=== PATIENT | male | born 1985 | race Two or more races ===

== ENCOUNTER 2016-10-04 19:23 | Emergency (ER) | payer BC ==
[~2016-10-04] VITALS: Ht 177.8 cm; Wt 120.2 kg
[2016-10-04 19:46] VITALS: BP 134/89
[2016-10-04 20:36] LABS: Basophils # (auto) 0 uL; Basophils % (auto) 0.9 % (0.0-2.0); Eosinophils # (auto) 0.2 uL; Eosinophils % (auto) 3.6 % (0.0-7.0); Hematocrit 47.7 % (41.0-53.0); Hemoglobin 16.2 g/dL (13.5-17.5); Lymphocytes % (auto) 21.7 % (10.0-50.0); Mean Corpuscular Hemoglobin 28.5 pg (28.0-32.0); Mean Corpuscular Volume 83.9 fL (80.0-100.0); Mean Platelet Volume 8.2 fL (7.4-10.4); Monocytes # (auto) 0.6 uL; Monocytes % (auto) 12.2 % (0.0-12.0); Neutrophils # (auto) 2.9 uL; Neutrophils % (auto) 61.6 % (37.0-80.0); Platelet Count (auto) 219 10^3/uL (140-450); Red Cell Distribution Width 14.2 % (11.6-16.0); White Blood Cell 4.7 10^3/uL (4.4-10.8)
[2016-10-04 21:03] LABS: Potassium 3.9 mmol/L (3.5-5.1)
[2016-10-04 21:04] LABS: Albumin 3.5 g/dL (3.4-5.0); Calcium 8.4 mg/dL (8.5-10.1)
[2016-10-04 21:07] LABS: Bilirubin, Total 0.7 mg/dL (0.2-1.0); Total Protein 7.5 g/dL (6.4-8.2)
== END 2016-10-04 22:59 | disposition home or self-care (01) ==
LOC: ER 20:05
DX: J09.X2 Influenza due to identified novel influenza A virus with other respiratory manifestations (principal); M10.9 Gout, unspecified
CPT/HCPCS: 36415; 71020; 80053; 84484; 85025; 85049; 87400

== ENCOUNTER 2016-11-02 11:33 | Inpatient (IN) | payer BC ==
[~2016-11-02] VITALS: Ht 180.3 cm; Wt 132.3 kg
[2016-11-02 13:11] LABS: INR 1.04 (0.9-1.15); Partial Thromboplastin Time 26.5 sec (22.64-33.71); Prothrombin Time 10.7 sec (9.37-12.3)
[2016-11-02 13:24] LABS: Albumin 4.1 g/dL (3.4-5.0); BUN/Creatinine Ratio 13.4; Bilirubin, Total 1.1 mg/dL (0.2-1.0); Calcium 9.2 mg/dL (8.5-10.1); Potassium 4.1 mmol/L (3.5-5.1); Total Protein 8.3 g/dL (6.4-8.2)
[2016-11-02 13:53] LABS: DEFINITIVE VIEW TRANSMISSION; Hematocrit 51.3 % (41.0-53.0); Hemoglobin 16.9 g/dL (13.5-17.5); Mean Corpuscular Hemoglobin 27.6 pg (28.0-32.0); Mean Corpuscular Hgb Conc. 32.9 g/dL (32.0-36.0); Mean Corpuscular Volume 84.1 fL (80.0-100.0); Mean Platelet Volume 9.3 fL (7.4-10.4); Platelet Count (auto) 247 10^3/uL (140-450); Red Cell Distribution Width 14.7 % (11.6-16.0); SUSPECT VIEW TRANSMISSION; White Blood Cell 22.8 10^3/uL (4.4-10.8)
[2016-11-02 14:06] LABS: Metamyelocytes % 0; Myelocytes % 0; Promyelocytes % 0; Reactive Lymphocytes 0
[2016-11-02] MEDS ORDERED: IOHEXOL 350 MG/ML 100ML IJ ONE (15:36)
[2016-11-02] MEDS: cefTRIAXone 1GM/50ML D5W 50 ML IV SCH (17:00)
[2016-11-02] MEDS ORDERED: LACTULOSE 20Gm/30ML SOLN PO PRN ×2 (17:15)
[2016-11-02] MEDS ORDERED: MORPHINE SULF INJ 2 MG/ML SYRINGE 1ML IV PRN ×2 (17:15)
[2016-11-02] MEDS ORDERED: OSELTAMIVIR 75 MG CAP PO ONE (17:15)
[2016-11-02] MEDS ORDERED: TEMAZEPAM 15 MG CAP PO PRN (17:15)
[2016-11-02] MEDS ORDERED: NITROGLYCERIN 0.4 MG SL TAB SL PRN (17:15)
[2016-11-02] MEDS ORDERED: ACETAMINOPHEN 500 MG TAB PO PRN (17:15)
[2016-11-02] MEDS ORDERED: PROMETHAZINE HCL 25 MG/ML 1ML IV PRN (17:15)
[2016-11-02] MEDS ORDERED: LORazepam 0.5 MG TAB PO PRN (17:15)
[2016-11-02] MEDS ORDERED: ALBUTEROL SULF 2.5 MG/0.5ML(0.5%) NEB SOLN NEB PRN (17:15)
[2016-11-02] MEDS ORDERED: ENOXAPARIN SOD 40 MG/0.4 ML SYRINGE SC ONE (17:19)
[2016-11-02] MEDS ORDERED: ASPirin 81 mg TAB PO ONE (17:30)
[2016-11-02] MEDS: SODIUM CHLORIDE 0.9% 1,000 ML IV SCH (17:30)
[2016-11-02 17:59] LABS: Platelet Estimate Adequate; RBC Morphology Normal
[2016-11-02] MEDS: AZITHROMYCIN 500MG/D5W 250ML 250 ML IV SCH (18:03)
[2016-11-02 18:30] VITALS: BP 135/71
[2016-11-02] MEDS: HYDROcodone-ACET 5/325MG TAB PO PRN (18:55)
[2016-11-02 19:45] LABS: INR 1.08 (0.9-1.15); Prothrombin Time 11.1 sec (9.37-12.3)
[2016-11-02 20:00] VITALS: BP 129/61
[2016-11-02] MEDS: ALBUTEROL SULF 2.5 MG/0.5ML(0.5%) NEB SOLN NEB SCH (21:32)
[2016-11-02 21:39] VITALS: BP 129/61
[2016-11-02] MEDS: METOPROLOL TARTRATE 25 MG TAB PO SCH (22:00)
[2016-11-03] VITALS (7 sets, daily range): BP systolic 109–142; BP diastolic 54–67
[2016-11-03] MEDS: ALBUTEROL SULF 2.5 MG/0.5ML(0.5%) NEB SOLN NEB SCH ×3 (00:51→12:00)
[2016-11-03 01:37] LABS: Albumin 3.1 g/dL (3.4-5.0); Anion Gap 8 (5-15); Aspartate Aminotransferase 21 U/L (15-37); BUN/Creatinine Ratio 13.6; Blood Urea Nitrogen 14 mg/dL (7-18); Calcium 8.4 mg/dL (8.5-10.1); Carbon Dioxide 26 mmol/L (21-32); Chloride 107 mmol/L (98-107); GFR African American 108 mL/min; GFR Non-African American 90 mL/min; Glucose 91 mg/dL (74-106); Potassium 3.8 mmol/L (3.5-5.1); Sodium 141 mmol/L (136-145)
[2016-11-03 01:42] LABS: Alkaline Phosphatase 88 U/L (45-117); Bilirubin, Total 0.5 mg/dL (0.2-1.0)
[2016-11-03] MEDS: SODIUM CHLORIDE 0.9% 1,000 ML IV SCH ×2 (03:07→11:54)
[2016-11-03 05:14] LABS: Basophils # (auto) 0 uL; Basophils % (auto) 0.2 % (0.0-2.0); Eosinophils # (auto) 0.4 uL; Eosinophils % (auto) 2.9 % (0.0-7.0); Hematocrit 46.8 % (41.0-53.0); Hemoglobin 15.3 g/dL (13.5-17.5); Lymphocytes % (auto) 15.4 % (10.0-50.0); Mean Corpuscular Hemoglobin 27.7 pg (28.0-32.0); Mean Corpuscular Hgb Conc. 32.7 g/dL (32.0-36.0); Mean Corpuscular Volume 84.7 fL (80.0-100.0); Mean Platelet Volume 8.8 fL (7.4-10.4); Monocytes # (auto) 0.5 uL; Monocytes % (auto) 3.9 % (0.0-12.0); Neutrophils # (auto) 10.1 uL; Neutrophils % (auto) 77.6 % (37.0-80.0); Platelet Count (auto) 222 10^3/uL (140-450); Red Cell Distribution Width 14.7 % (11.6-16.0)
[2016-11-03 05:46] LABS: LDL Cholesterol 95 mg/dL (<100); Triglycerides 167 mg/dL (<150)
[2016-11-03 06:03] LABS: Cholesterol 140 mg/dL (<200); HDL Cholesterol 42 mg/dL (40-59)
[2016-11-03] MEDS: HYDROcodone-ACET 5/325MG TAB PO PRN (07:45)
[2016-11-03] MEDS: cefTRIAXone 1GM/50ML D5W 50 ML IV SCH (09:28)
[2016-11-03] MEDS: METOPROLOL TARTRATE 25 MG TAB PO SCH (09:29)
[2016-11-03] MEDS ORDERED: ASPirin 81 mg TAB PO SCH (10:00)
[2016-11-03] MEDS ORDERED: NITROGLYCERIN 0.2MG/HR TOPICAL PATCH TD SCH (10:00)
[2016-11-03] MEDS ORDERED: ENOXAPARIN SOD 40 MG/0.4 ML SYRINGE SC SCH (10:00)
[2016-11-03] MEDS ORDERED: OSELTAMIVIR 75 MG CAP PO SCH (10:00)
[2016-11-03] MEDS: AZITHROMYCIN 500MG/D5W 250ML 250 ML IV SCH (10:17)
[2016-11-03] MEDS ORDERED: AZIT500T PO (13:25)
[2016-11-03] MEDS ORDERED: ALBUAER3 IN (13:28)
== END 2016-11-03 14:40 | disposition home or self-care (01) | DRG 313 ==
LOC: ER 11:33 → TELE 11:34 → TELE-CENTR 18:26
PROVIDERS: ADMIT Internal Medicine; ATTEND Internal Medicine
DX: R07.89 Other chest pain (principal); Z68.41 Body mass index [BMI] 40.0-44.9, adult; K76.0 Fatty (change of) liver, not elsewhere classified; J11.1 Influenza due to unidentified influenza virus with other respiratory manifestations; D72.829 Elevated white blood cell count, unspecified; E66.01 Morbid (severe) obesity due to excess calories; D72.828 Other elevated white blood cell count; R00.0 Tachycardia, unspecified; Z82.49 Family history of ischemic heart disease and other diseases of the circulatory system; Z83.3 Family history of diabetes mellitus; Z80.3 Family history of malignant neoplasm of breast; Z80.8 Family history of malignant neoplasm of other organs or systems
CPT/HCPCS: 36415; 71020; 71275; 80053; 80061; 82550; 83605; 83735; 84443; 84484; 85007; 85025; 85027; 85379; 85610; 85652; 85730; 86141; 86658; 87040; 87400; 93005; 94640; J0696

== ENCOUNTER 2017-06-13 19:47 | Emergency (ER) | payer BC ==
[~2017-06-13] VITALS: Ht 177.8 cm; Wt 125.2 kg
[~2017-06-13 19:47] MED LIST: ALBUAER3 IN; AZIT500T PO
[2017-06-13 20:00] VITALS: BP 133/73
[2017-06-13 21:37] LABS: Basophils # (auto) 0.1 uL; Basophils % (auto) 0.9 % (0.0-2.0); Eosinophils # (auto) 0.1 uL; Eosinophils % (auto) 1.9 % (0.0-7.0); Hematocrit 46.4 % (41.0-53.0); Hemoglobin 16.2 g/dL (13.5-17.5); Lymphocytes # (auto) 1.9 uL; Lymphocytes % (auto) 27.6 % (10.0-50.0); Mean Corpuscular Hemoglobin 28.8 pg (28.0-32.0); Mean Corpuscular Volume 82.3 fL (80.0-100.0); Mean Platelet Volume 8.3 fL (6.9-10.8); Monocytes # (auto) 0.5 uL; Monocytes % (auto) 6.7 % (0.0-12.0); Neutrophils # (auto) 4.3 uL; Neutrophils % (auto) 62.9 % (37.0-80.0); Nucleated Red Blood Cells % 0.5 %; Platelet Count (auto) 231 10^3/uL (140-450); White Blood Cell 6.9 10^3/uL (4.4-10.8)
[2017-06-13 21:48] LABS: Albumin 3.8 g/dL (3.4-5.0); BUN/Creatinine Ratio 23.8; Bilirubin, Total 0.5 mg/dL (0.2-1.0); Calcium 9.1 mg/dL (8.5-10.1); Potassium 3.8 mmol/L (3.5-5.1); Total Protein 7.8 g/dL (6.4-8.2); Uric Acid 9.8 mg/dL (3.5-7.2)
[2017-06-13] MEDS ORDERED: KETOROLAC TROMETH 60MG/2ML VIAL IM ONE (22:00)
== END 2017-06-13 22:05 | disposition home or self-care (01) ==
LOC: ER 19:51
DX: M10.9 Gout, unspecified (principal); Z79.899 Other long term (current) drug therapy
CPT/HCPCS: 36415; 73620; 80053; 84550; 85025; 96372; 99285; J1885

== ENCOUNTER → 2018-10-10 | Outpatient (CLI) | payer BC ==
[2018-10-10 04:28] LABS: Basophils # (auto) 0.1 uL; Basophils % (auto) 0.7 % (0.0-2.0); Eosinophils # (auto) 0.2 uL; Eosinophils % (auto) 2.5 % (0.0-7.0); Hematocrit 48.6 % (41.0-53.0); Hemoglobin 17.1 g/dL (13.5-17.5); Lymphocytes # (auto) 2.3 uL; Lymphocytes % (auto) 27.1 % (10.0-50.0); Mean Corpuscular Hemoglobin 29.3 pg (28.0-32.0); Mean Corpuscular Hgb Conc. 35.2 g/dL (32.0-36.0); Mean Corpuscular Volume 83.2 fL (80.0-100.0); Monocytes # (auto) 0.5 uL; Monocytes % (auto) 5.6 % (0.0-12.0); Neutrophils # (auto) 5.4 uL; Neutrophils % (auto) 64.1 % (37.0-80.0); Nucleated Red Blood Cells % 0.1 %; Platelet Count (auto) 251 10^3/uL (140-450); Red Blood Cells 5.84 10^6/uL (4.5-5.90); Red Cell Distribution Width 14.4 % (11.8-14.3); White Blood Cell 8.4 10^3/uL (4.4-10.8)
[2018-10-10 04:45] LABS: Alanine Aminotransferase 66 U/L (16-61); Albumin 3.8 g/dL (3.4-5.0); Anion Gap 8 (5-15); Aspartate Aminotransferase 26 U/L (15-37); BUN/Creatinine Ratio 23.9; Blood Urea Nitrogen 22 mg/dL (7-18); Calcium 8.9 mg/dL (8.5-10.1); Carbon Dioxide 23 mmol/L (21-32); Chloride 110 mmol/L (98-107); GFR African American > 60 mL/min; GFR Non-African American > 60 mL/min; Glucose 97 mg/dL (74-106); Sodium 141 mmol/L (136-145); Uric Acid 10.1 mg/dL (3.5-7.2)
[2018-10-10 04:49] LABS: Alkaline Phosphatase 84 U/L (45-117); Bilirubin, Total 0.6 mg/dL (0.2-1.0); Cholesterol 180 mg/dL (< 200); HDL Cholesterol 41 mg/dL (40-59); LDL Cholesterol 121 mg/dL (< 100); Total Protein 7.8 g/dL (6.4-8.2); Triglycerides 200 mg/dL (< 150)
[2018-10-10 04:55] LABS: Folate (Folic Acid) 12.77 ng/mL (5.38-24)
== END | disposition home or self-care (01) ==
LOC: LAB 07:00
DX: E78.5 Hyperlipidemia, unspecified (principal); E66.9 Obesity, unspecified; M1A.00X0 Idiopathic chronic gout, unspecified site, without tophus (tophi)
CPT/HCPCS: 36415; 80053; 80061; 82306; 82607; 82746; 83036; 84550; 85025

== ENCOUNTER 2018-10-15 12:51 | Emergency (ER) | payer BC ==
[2018-10-15] MEDS ORDERED: INDOMETHACIN 25 MG CAP PO ONE (13:30)
[2018-10-15] MEDS ORDERED: LIDOCAINE 1% HCL (LOCAL ANESTH.) INJ 20ML MDV IJ ONE (13:45)
[2018-10-15] MEDS ORDERED: TRIAMCINOLONE 40MG/ML 1ML VIAL IM ONE (13:45)
[2018-10-15 14:35] LABS: Basophils # (auto) 0 uL; Basophils % (auto) 0.4 % (0.0-2.0); Eosinophils # (auto) 0.2 uL; Eosinophils % (auto) 2.1 % (0.0-7.0); Hematocrit 47.2 % (41.0-53.0); Hemoglobin 16.7 g/dL (13.5-17.5); Lymphocytes # (auto) 1.9 uL; Lymphocytes % (auto) 23.9 % (10.0-50.0); Mean Corpuscular Hemoglobin 29.3 pg (28.0-32.0); Mean Corpuscular Hgb Conc. 35.3 g/dL (32.0-36.0); Mean Corpuscular Volume 83.1 fL (80.0-100.0); Monocytes # (auto) 0.4 uL; Monocytes % (auto) 5.3 % (0.0-12.0); Neutrophils # (auto) 5.4 uL; Neutrophils % (auto) 68.3 % (37.0-80.0); Nucleated Red Blood Cells % 0.4 %; Platelet Count (auto) 262 10^3/uL (140-450); Red Blood Cells 5.68 10^6/uL (4.5-5.90); Red Cell Distribution Width 14.4 % (11.8-14.3); White Blood Cell 7.9 10^3/uL (4.4-10.8)
[2018-10-15 14:44] LABS: Albumin 3.7 g/dL (3.4-5.0); Calcium 9.3 mg/dL (8.5-10.1); Potassium 4.3 mmol/L (3.5-5.1); Uric Acid 8.1 mg/dL (3.5-7.2)
[2018-10-15 14:47] LABS: BUN/Creatinine Ratio 19.4; Bilirubin, Total 0.5 mg/dL (0.2-1.0); Total Protein 7.9 g/dL (6.4-8.2)
== END 2018-10-15 16:01 | disposition home or self-care (01) ==
LOC: ER 12:56
DX: M25.561 Pain in right knee (principal); M10.9 Gout, unspecified
CPT/HCPCS: 20610; 36415; 73562; 80053; 84550; 85025; 87205; 99284; J2001; J3301; 96372

== ENCOUNTER 2018-10-24 19:24 | Emergency (ER) | payer BC ==
[~2018-10-24] VITALS: Ht 177.8 cm; Wt 130.2 kg
[2018-10-24 21:33] LABS: Albumin 3.8 g/dL (3.4-5.0); Calcium 8.9 mg/dL (8.5-10.1)
[2018-10-24 21:36] LABS: Bilirubin, Total 0.6 mg/dL (0.2-1.0); Total Protein 7.8 g/dL (6.4-8.2)
[2018-10-24 21:44] LABS: Basophils # (auto) 0.1 uL; Basophils % (auto) 0.6 % (0.0-2.0); Eosinophils # (auto) 0.2 uL; Eosinophils % (auto) 1.7 % (0.0-7.0); Hematocrit 45.1 % (41.0-53.0); Hemoglobin 16.3 g/dL (13.5-17.5); Lymphocytes # (auto) 2.6 uL; Mean Corpuscular Hemoglobin 29.6 pg (28.0-32.0); Mean Corpuscular Volume 82.1 fL (80.0-100.0); Monocytes # (auto) 0.5 uL; Monocytes % (auto) 5.7 % (0.0-12.0); Neutrophils # (auto) 5.7 uL; Platelet Count (auto) 269 10^3/uL (140-450); Red Cell Distribution Width 14.4 % (11.8-14.3)
[2018-10-24] MEDS ORDERED: cefTRIAXone 1GM/50ML D5W 50 ML IV ONE (23:45)
[2018-10-24] MEDS ORDERED: KETOROLAC TROMETH 30 MG/ML 1ML VIAL IV ONE (23:45)
[2018-10-24] MEDS ORDERED: COLCHICINE 0.6 MG CAP PO ONE (23:45)
[2018-10-24] MEDS ORDERED: ALLOPURINOL 300 MG TAB PO ONE (23:45)
[2018-10-25 01:10] VITALS: BP 142/87
[2018-10-25] MEDS ORDERED: COLCHICINE 0.6 MG CAP PO ONE (01:15)
== END 2018-10-25 01:19 | disposition home or self-care (01) ==
LOC: ER 19:37
DX: M10.061 Idiopathic gout, right knee (principal); M76.9 Unspecified enthesopathy, lower limb, excluding foot
CPT/HCPCS: 36415; 73562; 73700; 80053; 84550; 85025; 96365; 96375; 99284; J0696; J1885

== ENCOUNTER 2019-04-05 05:48 | Emergency (ER) | payer BC ==
[~2019-04-05] VITALS: Ht 180.3 cm; Wt 127.0 kg
[2019-04-05 05:53] VITALS: BP 138/85
[2019-04-05] MEDS ORDERED: methylPREDNISolone SOD SUCC 125 MG/2 ML VL IM ONE (07:00)
[2019-04-05] MEDS ORDERED: KETOROLAC TROMETH 60MG/2ML VIAL IM ONE (07:00)
== END 2019-04-05 07:31 | disposition home or self-care (01) ==
LOC: ER 05:48
DX: M10.022 Idiopathic gout, left elbow (principal); M10.021 Idiopathic gout, right elbow
CPT/HCPCS: 36415; 84550; 96372; 99283; J1885; J2930

== ENCOUNTER → 2019-05-09 | Outpatient (CLI) | payer BC ==
[2019-05-09 12:46] LABS: Basophils # (auto) 0.1 uL; Basophils % (auto) 0.6 % (0.0-2.0); Eosinophils # (auto) 0.1 uL; Eosinophils % (auto) 0.8 % (0.0-7.0); Hemoglobin 16.2 g/dL (13.5-17.5); Lymphocytes # (auto) 2.7 uL; Lymphocytes % (auto) 29.8 % (10.0-50.0); Mean Corpuscular Hemoglobin 28.8 pg (28.0-32.0); Mean Corpuscular Hgb Conc. 34.4 g/dL (32.0-36.0); Mean Corpuscular Volume 83.6 fL (80.0-100.0); Monocytes # (auto) 0.5 uL; Monocytes % (auto) 5.2 % (0.0-12.0); Neutrophils # (auto) 5.7 uL; Neutrophils % (auto) 63.6 % (37.0-80.0); Nucleated Red Blood Cells % 0.1 %; Platelet Count (auto) 259 10^3/uL (140-450); Red Blood Cells 5.62 10^6/uL (4.5-5.90); Red Cell Distribution Width 14.8 % (11.8-14.3); White Blood Cell 8.9 10^3/uL (4.4-10.8)
[2019-05-09 12:57] LABS: Albumin 3.9 g/dL (3.4-5.0); Calcium 9.4 mg/dL (8.5-10.1); Potassium 4.2 mmol/L (3.5-5.1)
[2019-05-09 13:09] LABS: BUN/Creatinine Ratio 18.9; Bilirubin, Total 0.4 mg/dL (0.2-1.0); Total Protein 7.9 g/dL (6.4-8.2)
[2019-05-09 13:14] LABS: Uric Acid 9.6 mg/dL (3.5-7.2)
== END | disposition home or self-care (01) ==
LOC: LAB 12:22
DX: Z00.00 Encounter for general adult medical examination without abnormal findings (principal); M10.9 Gout, unspecified; R53.1 Weakness; E78.5 Hyperlipidemia, unspecified; E55.9 Vitamin D deficiency, unspecified; R79.89 Other specified abnormal findings of blood chemistry
CPT/HCPCS: 36415; 80053; 80061; 82306; 83036; 84443; 84550; 85025

== ENCOUNTER 2019-06-02 04:08 | Emergency (ER) | payer BC ==
[~2019-06-02] VITALS: Ht 180.3 cm; Wt 133.8 kg
[2019-06-02] MEDS ORDERED: ACETAMINOPHEN 325 MG TAB PO ONE (04:30)
[2019-06-02 05:18] LABS: Basophils # (auto) 0.1 uL; Eosinophils # (auto) 0 uL; Eosinophils % (auto) 0.4 % (0.0-7.0); Hematocrit 44.8 % (41.0-53.0); Hemoglobin 15.7 g/dL (13.5-17.5); Lymphocytes % (auto) 19.5 % (10.0-50.0); Mean Corpuscular Hemoglobin 29.2 pg (28.0-32.0); Mean Corpuscular Volume 83.3 fL (80.0-100.0); Monocytes # (auto) 0.6 uL; Monocytes % (auto) 10.6 % (0.0-12.0); Neutrophils # (auto) 3.6 uL; Neutrophils % (auto) 68.5 % (37.0-80.0); Nucleated Red Blood Cells % 0.2 %; Platelet Count (auto) 185 10^3/uL (140-450); Red Blood Cells 5.38 10^6/uL (4.5-5.90); Red Cell Distribution Width 14.9 % (11.8-14.3); White Blood Cell 5.3 10^3/uL (4.4-10.8)
[2019-06-02 05:40] LABS: Potassium 4.2 mmol/L (3.5-5.1)
[2019-06-02 05:50] LABS: Albumin 3.4 g/dL (3.4-5.0); BUN/Creatinine Ratio 16.8; Bilirubin, Total 0.8 mg/dL (0.2-1.0); Calcium 9.2 mg/dL (8.5-10.1); Total Protein 7.5 g/dL (6.4-8.2)
[2019-06-02] MEDS ORDERED: SODIUM CHLORIDE 0.9% 1,000 ML IV ONE ×2 (06:58)
[2019-06-02] MEDS ORDERED: INDOMETHACIN 25 MG CAP PO ONE (07:00)
[2019-06-02] MEDS ORDERED: ONDANSETRON HCL 4 MG/2 ML VIAL IV ONE (08:30)
[2019-06-02] MEDS ORDERED: HYDROmorphone HCL 2 MG/ML VL IV ONE (08:30)
[2019-06-02] MEDS ORDERED: cefTRIAXone SOD 1,000 MG VL ONE (08:44)
[2019-06-02 10:16] VITALS: BP 127/78
== END 2019-06-02 10:36 | disposition home or self-care (01) ==
LOC: ER 04:08 → EEVIPCON 04:08 → ER 10:36
DX: M10.061 Idiopathic gout, right knee (principal)
CPT/HCPCS: 36415; 71045; 73700; 80053; 84550; 85025; 93971; 96374; 96375; 99284; J0696; J1170; J2405; J7030

== ENCOUNTER 2019-07-09 10:36 | Emergency (ER) | payer BC ==
[~2019-07-09] VITALS: Ht 177.8 cm; Wt 136.1 kg
[2019-07-09 10:44] VITALS: BP 141/91
[2019-07-09 13:11] LABS: Basophils # (auto) 0 uL; Basophils % (auto) 0.4 % (0.0-2.0); Eosinophils # (auto) 0.2 uL; Eosinophils % (auto) 1.7 % (0.0-7.0); Hematocrit 46.1 % (41.0-53.0); Hemoglobin 15.7 g/dL (13.5-17.5); Lymphocytes % (auto) 22.3 % (10.0-50.0); Mean Corpuscular Hemoglobin 28.9 pg (28.0-32.0); Monocytes # (auto) 0.5 uL; Monocytes % (auto) 6.1 % (0.0-12.0); Neutrophils # (auto) 6.2 uL; Neutrophils % (auto) 69.5 % (37.0-80.0); Nucleated Red Blood Cells % 0.1 %; Platelet Count (auto) 256 10^3/uL (140-450); Red Blood Cells 5.43 10^6/uL (4.5-5.90); Red Cell Distribution Width 15.8 % (11.8-14.3); White Blood Cell 8.9 10^3/uL (4.4-10.8)
[2019-07-09 13:20] LABS: Albumin 3.8 g/dL (3.4-5.0); Calcium 9.1 mg/dL (8.5-10.1); Potassium 4.1 mmol/L (3.5-5.1); Uric Acid 6.2 mg/dL (3.5-7.2)
[2019-07-09 13:23] LABS: BUN/Creatinine Ratio 10.4; Bilirubin, Total 0.6 mg/dL (0.2-1.0); Total Protein 7.9 g/dL (6.4-8.2)
[2019-07-09] MEDS ORDERED: HYDROmorphone HCL 2 MG/ML VL IM ONE (14:00)
[2019-07-09] MEDS ORDERED: ONDANSETRON HCL 4 MG/2 ML VIAL IM ONE (14:00)
== END 2019-07-09 15:37 | disposition home or self-care (01) ==
LOC: EEVIPCON 10:36 → ER 10:36
DX: M10.062 Idiopathic gout, left knee (principal)
CPT/HCPCS: 36415; 73562; 80053; 84550; 85025; 85652; 96372; 99284; J1170; J2405

== ENCOUNTER → 2019-12-24 | Outpatient (CLI) | payer OTHER | END | disposition home or self-care (01) | LOC: LAB 07:24 | PROVIDERS: ATTEND Nurse Practitioner Family | DX: Z03.818 Encounter for observation for suspected exposure to other biological agents ruled out (principal) | CPT/HCPCS: C9803; U0003 ==

== ENCOUNTER 2020-04-29 07:05 | Emergency (ER) | payer BC, OTHER ==
[~2020-04-29] VITALS: Ht 180.3 cm; Wt 129.3 kg
[2020-04-29 07:11] VITALS: BP 126/77
[2020-04-29 07:29] LABS: Basophils # (auto) 0.1 10 ^3/uL (0-0.2); Basophils % (auto) 0.9 % (0.0-2.0); Eosinophils # (auto) 0.2 10 ^3/uL (0-0.8); Hemoglobin 16.1 g/dL (13.5-17.5); Lymphocytes # (auto) 1.9 10 ^3/uL (0.4-5.4); Lymphocytes % (auto) 24.8 % (10.0-50.0); Mean Corpuscular Hemoglobin 28.4 pg (28.0-32.0); Mean Corpuscular Hgb Conc. 34.4 g/dL (32.0-36.0); Mean Corpuscular Volume 82.6 fL (80.0-100.0); Monocytes # (auto) 0.4 10 ^3/uL (0-1.3); Monocytes % (auto) 5.8 % (0.0-12.0); Neutrophils # (auto) 5.1 10 ^3/uL (1.6-8.6); Neutrophils % (auto) 66.5 % (37.0-80.0); Nucleated Red Blood Cells % 0.3 %; Platelet Count (auto) 251 10^3/uL (140-450); Red Blood Cells 5.69 10^6/uL (4.5-5.90); Red Cell Distribution Width 15.2 % (11.8-14.3); White Blood Cell 7.7 10^3/uL (4.4-10.8)
[2020-04-29] MEDS ORDERED: KETOROLAC TROMETH 60MG/2ML VIAL IM ONE (07:30)
[2020-04-29 07:43] LABS: BUN/Creatinine Ratio 18.6; Calcium 9.3 mg/dL (8.5-10.1); Potassium 4.1 mmol/L (3.5-5.1)
[2020-04-29 07:50] LABS: Uric Acid 11.3 mg/dL (3.5-7.2)
[2020-04-29] MEDS ORDERED: methylPREDNISolone SOD SUCC 125 MG/2 ML VL IM ONE (08:00)
== END 2020-04-29 08:12 | disposition home or self-care (01) ==
LOC: ER 07:05
DX: M10.9 Gout, unspecified (principal)
CPT/HCPCS: 36415; 73130; 80048; 84550; 85025; 85652; 96372; 99284; J1885; J2930

== ENCOUNTER → 2020-05-15 | Outpatient (CLI) | payer OTHER | END | disposition home or self-care (01) | LOC: LAB 14:04 | PROVIDERS: ATTEND Nurse Practitioner Family | DX: Z20.828 Contact with and (suspected) exposure to other viral communicable diseases (principal) | CPT/HCPCS: C9803; U0003 ==

== ENCOUNTER 2020-07-15 07:02 | Emergency (ER) | payer BC, OTHER ==
[~2020-07-15] VITALS: Ht 177.8 cm; Wt 131.5 kg
[2020-07-15 07:14] VITALS: BP 139/97
[2020-07-15 07:20] LABS: Basophils # (auto) 0.1 10 ^3/uL (0-0.2); Eosinophils # (auto) 0.2 10 ^3/uL (0-0.8); Eosinophils % (auto) 2.1 % (0.0-7.0); Hematocrit 48.2 % (41.0-53.0); Hemoglobin 16.5 g/dL (13.5-17.5); Lymphocytes # (auto) 2.2 10 ^3/uL (0.4-5.4); Lymphocytes % (auto) 28.2 % (10.0-50.0); Mean Corpuscular Hemoglobin 28.1 pg (28.0-32.0); Mean Corpuscular Hgb Conc. 34.2 g/dL (32.0-36.0); Mean Corpuscular Volume 82.2 fL (80.0-100.0); Monocytes # (auto) 0.4 10 ^3/uL (0-1.3); Monocytes % (auto) 5.4 % (0.0-12.0); Neutrophils # (auto) 4.9 10 ^3/uL (1.6-8.6); Neutrophils % (auto) 63.3 % (37.0-80.0); Nucleated Red Blood Cells % 0.1 %; Platelet Count (auto) 263 10^3/uL (140-450); Red Blood Cells 5.86 10^6/uL (4.5-5.90); Red Cell Distribution Width 15.6 % (11.8-14.3); White Blood Cell 7.7 10^3/uL (4.4-10.8)
[2020-07-15] MEDS ORDERED: KETOROLAC TROMETH 60MG/2ML VIAL IM ONE (07:30)
[2020-07-15] MEDS ORDERED: methylPREDNISolone SOD SUCC 125 MG/2 ML VL IM ONE (07:30)
[2020-07-15 07:36] LABS: BUN/Creatinine Ratio 21.5; Calcium 9.8 mg/dL (8.5-10.1); Potassium 4.1 mmol/L (3.5-5.1); Uric Acid 8.4 mg/dL (3.5-7.2)
== END 2020-07-15 08:13 | disposition home or self-care (01) ==
LOC: ER 07:02 → EEVIPCON 07:02 → ER 08:11
DX: M10.9 Gout, unspecified (principal); Z79.899 Other long term (current) drug therapy
CPT/HCPCS: 36415; 80048; 84550; 85025; 96372; 99284; J1885; J2930

== ENCOUNTER → 2020-09-02 | Outpatient (CLI) | payer OTHER | END | disposition home or self-care (01) | LOC: LAB 10:25 | PROVIDERS: ATTEND Nurse Practitioner Family | DX: Z20.828 Contact with and (suspected) exposure to other viral communicable diseases (principal) ==

== ENCOUNTER → 2020-09-19 | Outpatient (CLI) | payer OTHER | END | disposition home or self-care (01) | LOC: LAB 12:15 | PROVIDERS: ATTEND Nurse Practitioner Family | DX: U07.1 COVID-19 (principal) ==

== ENCOUNTER 2021-03-09 21:29 | Emergency (ER) | payer BC, OTHER ==
[~2021-03-09] VITALS: Ht 177.8 cm; Wt 140.6 kg
[2021-03-10] MEDS ORDERED: KETOROLAC TROMETH 60MG/2ML VIAL IM ONE (00:30)
[2021-03-10 00:32] VITALS: BP 140/85
== END 2021-03-10 00:34 | disposition home or self-care (01) ==
LOC: ER 21:31 → EEVIPCON 21:31 → ER 03-10 00:34
DX: S83.91XA Sprain of unspecified site of right knee, initial encounter (principal); Z79.2 Long term (current) use of antibiotics; Z79.899 Other long term (current) drug therapy; X58.XXXA Exposure to other specified factors, initial encounter; Y93.89 Activity, other specified; Y92.89 Other specified places as the place of occurrence of the external cause; Y99.8 Other external cause status
CPT/HCPCS: 73562; 96372; 99283; J1885

== ENCOUNTER 2021-03-11 07:38 | Emergency (ER) | payer BC ==
[2021-03-11] MEDS ORDERED: ONDANSETRON HCL 4 MG/2 ML VIAL IV ONE (07:45)
[2021-03-11] MEDS ORDERED: HYDROmorphone HCL 2 MG/ML VL IV ONE (07:45)
[2021-03-11 08:42] LABS: Basophils # (auto) 0.1 10 ^3/uL (0-0.2); Basophils % (auto) 0.7 % (0.0-2.0); Eosinophils # (auto) 0.2 10 ^3/uL (0-0.8); Eosinophils % (auto) 2.5 % (0.0-7.0); Hematocrit 41.2 % (41.0-53.0); Hemoglobin 14.7 g/dL (13.5-17.5); Lymphocytes % (auto) 26.4 % (10.0-50.0); Mean Corpuscular Hgb Conc. 35.6 g/dL (32.0-36.0); Mean Corpuscular Volume 81.4 fL (80.0-100.0); Monocytes # (auto) 0.6 10 ^3/uL (0-1.3); Monocytes % (auto) 7.6 % (0.0-12.0); Neutrophils # (auto) 4.7 10 ^3/uL (1.6-8.6); Neutrophils % (auto) 62.8 % (37.0-80.0); Nucleated Red Blood Cells % 0.3 %; Red Blood Cells 5.06 10^6/uL (4.5-5.90); Red Cell Distribution Width 15.6 % (11.8-14.3); White Blood Cell 7.5 10^3/uL (4.4-10.8)
[2021-03-11 09:06] LABS: Albumin 3.4 g/dL (3.4-5.0); Calcium 8.6 mg/dL (8.5-10.1); Potassium 3.8 mmol/L (3.5-5.1)
[2021-03-11 09:10] LABS: BUN/Creatinine Ratio 20.5; Bilirubin, Total 0.6 mg/dL (0.2-1.0); Total Protein 7.1 g/dL (6.4-8.2); Uric Acid 8.8 mg/dL (3.5-7.2)
[2021-03-11 09:41] VITALS: BP 116/66
[2021-05-13] MEDS ORDERED: IBUP800T27 PO (14:20)
[2021-05-13] MEDS ORDERED: ALLO300T2 PO (14:20)
== END 2021-03-11 10:44 | disposition home or self-care (01) ==
LOC: EEVIPCON 07:38 → ER 07:38
DX: M10.9 Gout, unspecified (principal)
CPT/HCPCS: 36415; 73700; 80053; 84550; 85025; 85049; 93971; 96374; 96375; 99285; J1170; J2405

== ENCOUNTER 2021-05-20 07:30 | Day surgery (SDC) | payer BC ==
[2021-05-13 14:37] LABS: Basophils # (auto) 0.1 10 ^3/uL (0-0.2); Basophils % (auto) 1.4 % (0.0-2.0); Eosinophils # (auto) 0.2 10 ^3/uL (0-0.8); Eosinophils % (auto) 2.2 % (0.0-7.0); Hematocrit 42.6 % (41.0-53.0); Hemoglobin 14.8 g/dL (13.5-17.5); Lymphocytes # (auto) 2.2 10 ^3/uL (0.4-5.4); Lymphocytes % (auto) 30.3 % (10.0-50.0); Mean Corpuscular Hemoglobin 27.6 pg (28.0-32.0); Mean Corpuscular Hgb Conc. 34.8 g/dL (32.0-36.0); Mean Corpuscular Volume 79.3 fL (80.0-100.0); Monocytes # (auto) 0.4 10 ^3/uL (0-1.3); Neutrophils # (auto) 4.5 10 ^3/uL (1.6-8.6); Neutrophils % (auto) 61.1 % (37.0-80.0); Nucleated Red Blood Cells % 0.2 %; Red Blood Cells 5.37 10^6/uL (4.5-5.90); Red Cell Distribution Width 16.4 % (11.8-14.3); White Blood Cell 7.4 10^3/uL (4.4-10.8)
[2021-05-13 15:18] LABS: Potassium 4.2 mmol/L (3.5-5.1)
[2021-05-13 15:35] LABS: Albumin 3.6 g/dL (3.4-5.0); BUN/Creatinine Ratio 10.4; Bilirubin, Total 0.4 mg/dL (0.2-1.0); Calcium 9.7 mg/dL (8.5-10.1); Total Protein 8.2 g/dL (6.4-8.2)
[~2021-05-20] VITALS: Ht 180.3 cm; Wt 145.1 kg
[~2021-05-20 07:30] MED LIST changes: +ALLO300T2 PO; +IBUP800T27 PO
[2021-05-20] MEDS ORDERED: LIDOCAINE W/ EPINEPHRINE 1% 20ML VIAL ONE (07:38)
[2021-05-20] MEDS ORDERED: NEOMYCIN-BACITRACIN-POLYM 15GM TOP OINT TOP ONE (07:38)
[2021-05-20] MEDS ORDERED: ceFAZolin 1GM/50ML 50 ML IV ONE (07:58)
[2021-05-20] MEDS ORDERED: SUCCINYLCHOLINE CHLORIDE 20 MG/ML 10ML VIAL IV ONE (08:19)
[2021-05-20] MEDS ORDERED: ONDANSETRON HCL 4 MG/2 ML VIAL ONE (08:20)
[2021-05-20] MEDS ORDERED: LIDOCAINE 2% (LOCAL ANESTH.) PF 5ml SDV ONE (08:20)
[2021-05-20] MEDS ORDERED: PROPOFOL 10 MG/ML 20 ML IV ONE (08:20)
[2021-05-20] MEDS ORDERED: MIDAZOLAM HCL 2MG/2ML 2ml VIAL (1mg/ml) ONE (08:36)
[2021-05-20] MEDS ORDERED: fentaNYL CITRATE 100 MCG/2 ML VL ONE (08:36)
[2021-05-20] MEDS ORDERED: NALOXONE HCL 0.4 MG/ML VIAL ONE (09:37)
[2021-05-20] MEDS ORDERED: GLYCOPYRROLATE 0.2 MG/ML 1ML VIAL ONE (09:48)
[2021-05-20] MEDS ORDERED: HYDROmorphone HCL 2 MG/ML VL IV PRN (10:00)
[2021-05-20] MEDS ORDERED: METOCLOPRAMIDE HCL 5MG/ml INJ 2ml VIAL IV PRN (10:00)
[2021-05-20] MEDS ORDERED: ONDANSETRON HCL 4 MG/2 ML VIAL IV PRN (10:00)
[2021-05-20] MEDS ORDERED: KETOROLAC TROMETH 30 MG/ML 1ML VIAL ONE (10:23)
[2021-05-20] MEDS ORDERED: KETOROLAC TROMETH 30 MG/ML 1ML VIAL IV ONE (10:30)
[2021-05-20 10:35] VITALS: BP 125/76
== END 2021-05-20 10:45 | disposition home or self-care (01) ==
LOC: SUR 07:30
PROVIDERS: ATTEND Urology
DX: N47.1 Phimosis (principal); I10 Essential (primary) hypertension; M10.9 Gout, unspecified; Z98.890 Other specified postprocedural states; Z79.899 Other long term (current) drug therapy; Z68.41 Body mass index [BMI] 40.0-44.9, adult
CPT/HCPCS: 36415; 54161; 80053; 85025; 88307; J0330; J0690; J1885; J2001; J2250; J2310; J2405; J2704; J3010; U0003

== ENCOUNTER → 2022-07-26 | Outpatient (CLI) | payer BC | END | disposition home or self-care (01) | LOC: LAB 10:19 | PROVIDERS: ATTEND Podiatrist | DX: M10.9 Gout, unspecified (principal) | CPT/HCPCS: 36415; 84550 ==

== ENCOUNTER 2023-02-05 13:16 | Inpatient (IN) | payer BC ==
[~2023-02-05] VITALS: Ht 177.8 cm; Wt 140.0 kg
[~2023-02-05 13:16] MED LIST changes: +IBUP-1456 PO; -IBUP800T27 PO
[2023-02-05 13:56] LABS: Basophils # (auto) 0.1 10 ^3/uL (0-0.2); Eosinophils # (auto) 0.3 10 ^3/uL (0-0.8); Hemoglobin 9.2 g/dL (13.5-17.5); Lymphocytes # (auto) 1.7 10 ^3/uL (0.4-5.4); Monocytes # (auto) 0.5 10 ^3/uL (0-1.3)
[2023-02-05 13:58] LABS: Basophils % (auto) 0.9 % (0.0-2.0); Eosinophils % (auto) 3.5 % (0.0-7.0); Hematocrit 30.6 % (41.0-53.0); Lymphocytes % (auto) 20.3 % (10.0-50.0); Mean Corpuscular Hemoglobin 16.9 pg (28.0-32.0); Mean Corpuscular Hgb Conc. 30.2 g/dL (32.0-36.0); Monocytes % (auto) 5.3 % (0.0-12.0); Red Blood Cells 5.45 10^6/uL (4.5-5.90); White Blood Cell 8.5 10^3/uL (4.4-10.8)
[2023-02-05 14:04] LABS: Red Cell Distribution Width 21.1 % (11.8-14.3)
[2023-02-05 14:19] LABS: Albumin 3.5 g/dL (3.4-5.0); Calcium 9.4 mg/dL (8.5-10.1); Potassium 4.2 mmol/L (3.5-5.1)
[2023-02-05 14:24] LABS: Bilirubin, Total 0.3 mg/dL (0.2-1.0); Total Protein 7.9 g/dL (6.4-8.2)
[2023-02-05] MEDS ORDERED: SODIUM CHLORIDE 0.9% 1,000 ML IVB ONE (14:45)
[2023-02-05 14:55] LABS: Urine WBC None Seen /hpf (0 - 3)
[2023-02-05 15:02] LABS: Urine Bacteria NONE SEEN /hpf (None Seen); Urine Blood Negative /uL (Negative); Urine Mucus FEW (None Seen); Urine Specific Gravity 1.019 (1.001-1.035)
[2023-02-05 15:21] LABS: INR 0.96 (0.9-1.15); Partial Thromboplastin Time 28.6 sec (24.6-33.4)
[2023-02-05] MEDS ORDERED: ONDANSETRON HCL 4 MG/2 ML VIAL IV PRN (15:45)
[2023-02-05] MEDS: MORPHINE SULFATE INJ 2 MG/ml SYRG IV PRN ×2 (17:13→22:33)
[2023-02-05] MEDS: D5W/SOD CHL 0.45% 1,000 ML IV SCH (18:59)
[2023-02-05 22:00] VITALS: BP 133/64
[2023-02-05] MEDS ORDERED: ALLO100T PO (23:19)
[2023-02-05 23:24] VITALS: BP 133/64
[2023-02-06] MEDS: D5W/SOD CHL 0.45% 1,000 ML IV SCH ×3 (01:45→21:45)
[2023-02-06 05:00] VITALS: BP 102/57
[2023-02-06] MEDS: MORPHINE SULFATE INJ 2 MG/ml SYRG IV PRN ×4 (05:12→23:23)
[2023-02-06 06:26] LABS: Basophils # (auto) 0.1 10 ^3/uL (0-0.2); Eosinophils # (auto) 0.3 10 ^3/uL (0-0.8); Hemoglobin 8.1 g/dL (13.5-17.5); Lymphocytes # (auto) 1.8 10 ^3/uL (0.4-5.4); Neutrophils # (auto) 5.1 10 ^3/uL (1.6-8.6)
[2023-02-06 06:29] LABS: Basophils % (auto) 0.7 % (0.0-2.0); Eosinophils % (auto) 4.1 % (0.0-7.0); Hematocrit 26.6 % (41.0-53.0); Lymphocytes % (auto) 23.3 % (10.0-50.0); Mean Corpuscular Hemoglobin 17.3 pg (28.0-32.0); Mean Corpuscular Hgb Conc. 30.6 g/dL (32.0-36.0); Mean Corpuscular Volume 56.5 fL (80.0-100.0); Monocytes # (auto) 0.5 10 ^3/uL (0-1.3); Monocytes % (auto) 5.9 % (0.0-12.0); Nucleated Red Blood Cells % 0.1 %; White Blood Cell 7.7 10^3/uL (4.4-10.8)
[2023-02-06 06:38] LABS: Red Cell Distribution Width 20.9 % (11.8-14.3)
[2023-02-06 06:48] LABS: BUN/Creatinine Ratio 13.5 (10.0-20.0); Calcium 8.9 mg/dL (8.5-10.1); Potassium 3.7 mmol/L (3.5-5.1)
[2023-02-06 09:00] VITALS: BP 111/61
[2023-02-06] MEDS ORDERED: GASTROGRAFIN 30 ML SOL ONE (09:42)
[2023-02-06] MEDS ORDERED: PANTOPRAZOLE 40 MG/10 ML VIAL INJ IV SCH (10:00)
[2023-02-06 13:00] VITALS: BP 125/6
[2023-02-06 14:28] LABS: Hepatitis C Antibody Negative (Negative)
[2023-02-06 16:29] LABS: % Iron Saturation 2.7 % (20-55)
[2023-02-06 16:34] LABS: Folate (Folic Acid) 22.09 ng/mL (5.38-24)
[2023-02-06 17:00] VITALS: BP 113/80
[2023-02-06] MEDS ORDERED: CYANOCOBALAMIN (B-12) 1000 MCG/1 ML VIAL IM ONE (18:00)
[2023-02-06] MEDS ORDERED: GOLYTELY 4L KIT PO ONE (18:15)
[2023-02-06] MEDS ORDERED: IRON SUCROSE COMPLEX 200 MG in SODIUM CHL 0.9% 100 ML IV ONE (20:00)
[2023-02-06] MEDS: PANTOPRAZOLE 40 MG/10 ML VIAL INJ IV SCH (21:11)
[2023-02-06] MEDS: ALLOPURINOL 100 MG TAB PO SCH (21:12)
[2023-02-06 21:50] VITALS: BP 110/76
[2023-02-06] MEDS ORDERED: POLYETHYLENE GLYCOL 17 GM PWDR PO ONE (23:00)
[2023-02-07] MEDS: D5W/SOD CHL 0.45% 1,000 ML IV SCH (01:41)
[2023-02-07 04:53] VITALS: BP 109/82
[2023-02-07 05:52] LABS: Basophils # (auto) 0 10 ^3/uL (0-0.2); Eosinophils # (auto) 0.3 10 ^3/uL (0-0.8); Hemoglobin 7.9 g/dL (13.5-17.5); Monocytes # (auto) 0.6 10 ^3/uL (0-1.3); White Blood Cell 8.6 10^3/uL (4.4-10.8)
[2023-02-07 05:58] LABS: Basophils % (auto) 0.6 % (0.0-2.0); Eosinophils % (auto) 3.5 % (0.0-7.0); Hematocrit 25.6 % (41.0-53.0); Lymphocytes # (auto) 1.7 10 ^3/uL (0.4-5.4); Lymphocytes % (auto) 20.1 % (10.0-50.0); Mean Corpuscular Hemoglobin 17.3 pg (28.0-32.0); Mean Corpuscular Hgb Conc. 30.8 g/dL (32.0-36.0); Mean Corpuscular Volume 55.9 fL (80.0-100.0); Monocytes % (auto) 6.9 % (0.0-12.0); Neutrophils # (auto) 5.9 10 ^3/uL (1.6-8.6); Neutrophils % (auto) 68.9 % (37.0-80.0); Nucleated Red Blood Cells % 0.2 %; Red Blood Cells 4.58 10^6/uL (4.5-5.90)
[2023-02-07 06:12] LABS: Calcium 8.6 mg/dL (8.5-10.1); Magnesium 2.4 mg/dL (1.6-2.6); Potassium 3.7 mmol/L (3.5-5.1)
[2023-02-07 06:13] LABS: Red Cell Distribution Width 20.4 % (11.8-14.3)
[2023-02-07 06:17] LABS: BUN/Creatinine Ratio 8.9 (10.0-20.0)
[2023-02-07 09:00] VITALS: BP 127/70
[2023-02-07] MEDS: PANTOPRAZOLE 40 MG/10 ML VIAL INJ IV SCH ×2 (09:32→21:33)
[2023-02-07] MEDS: CYANOCOBALAMIN (B-12) 1000 MCG/1 ML VIAL IM SCH (09:32)
[2023-02-07] MEDS ORDERED: NALOXONE HCL 0.4 MG/ML VIAL ONE (09:56)
[2023-02-07] MEDS ORDERED: FLUMAZENIL 0.1 MG/ML INJ 10ML MDV IV ONE (09:56)
[2023-02-07] MEDS ORDERED: ERGOCALCIFEROL 50,000 UNIT(1.25MG) CAP PO SCH (10:00)
[2023-02-07] MEDS: ALLOPURINOL 100 MG TAB PO SCH (10:00)
[2023-02-07] MEDS ORDERED: SODIUM CHLORIDE LOCK 10 ML ONE (10:04)
[2023-02-07] MEDS: diphenhdrAMINE HCL 50 MG/1 ML VL ONE ×2 (11:44→11:45)
[2023-02-07] MEDS: fentaNYL CITRATE 100 MCG/2 ML VL ONE ×2 (11:44→11:47)
[2023-02-07] MEDS: MIDAZOLAM HCL 5 MG/ML-1ML VIAL ONE ×3 (11:44→11:49)
[2023-02-07] MEDS: MORPHINE SULFATE INJ 2 MG/ml SYRG IV PRN (14:27)
[2023-02-07 17:00] VITALS: BP 129/45
[2023-02-07] MEDS: IRON SUCROSE COMPLEX 200 MG in SODIUM CHL 0.9% 100 ML IV SCH (17:39)
[2023-02-07] MEDS ORDERED: traMADol HCL 50 MG TAB PO PRN (20:00)
[2023-02-07] MEDS: HYDROmorphone HCL 2 MG/ML VL/or syr IV PRN (20:34)
[2023-02-07 22:00] VITALS: BP 147/66
[2023-02-08] MEDS: ACETAMINOPHEN 500 MG TAB PO PRN ×2 (04:33→11:28)
[2023-02-08 05:07] VITALS: BP 127/68
[2023-02-08] MEDS: HYDROmorphone HCL 2 MG/ML VL/or syr IV PRN ×2 (06:42→12:53)
[2023-02-08 06:44] LABS: Basophils # (auto) 0 10 ^3/uL (0-0.2); Hemoglobin 8.4 g/dL (13.5-17.5); Lymphocytes # (auto) 1.6 10 ^3/uL (0.4-5.4); Monocytes # (auto) 0.7 10 ^3/uL (0-1.3); Neutrophils # (auto) 7.2 10 ^3/uL (1.6-8.6)
[2023-02-08 06:50] LABS: Basophils % (auto) 0.3 % (0.0-2.0); Eosinophils # (auto) 0.3 10 ^3/uL (0-0.8); Eosinophils % (auto) 2.9 % (0.0-7.0); Hematocrit 27.4 % (41.0-53.0); Lymphocytes % (auto) 16.4 % (10.0-50.0); Mean Corpuscular Hemoglobin 17.4 pg (28.0-32.0); Mean Corpuscular Hgb Conc. 30.6 g/dL (32.0-36.0); Monocytes % (auto) 7.1 % (0.0-12.0); Neutrophils % (auto) 73.3 % (37.0-80.0); Nucleated Red Blood Cells % 0.2 %; Red Blood Cells 4.82 10^6/uL (4.5-5.90); White Blood Cell 9.8 10^3/uL (4.4-10.8)
[2023-02-08 06:54] LABS: Red Cell Distribution Width 20.5 % (11.8-14.3)
[2023-02-08 09:00] VITALS: BP 117/65
[2023-02-08] MEDS: CYANOCOBALAMIN (B-12) 1000 MCG/1 ML VIAL IM SCH (09:18)
[2023-02-08] MEDS: PANTOPRAZOLE 40 MG/10 ML VIAL INJ IV SCH (09:19)
[2023-02-08] MEDS: ALLOPURINOL 100 MG TAB PO SCH (09:19)
[2023-02-08] MEDS: IRON SUCROSE COMPLEX 200 MG in SODIUM CHL 0.9% 100 ML IV SCH (12:46)
[2023-02-08 13:00] VITALS: BP 131/63
[2023-02-08 13:23] VITALS: BP 131/63
== END 2023-02-08 17:44 | disposition home or self-care (01) | DRG 375 ==
LOC: EEVIPCON 13:16 → ER 13:16 → OVERFLOW 15:50 → WEST WING 21:34
PROVIDERS: ADMIT Nurse Practitioner Acute Care; ATTEND Internal Medicine
PROC: 0DBH8ZX Excision of Cecum, Via Natural or Artificial Opening Endoscopic, Diagnostic (ICD-10-PCS; 2023-02-07)
PROC: 0DBL8ZZ Excision of Transverse Colon, Via Natural or Artificial Opening Endoscopic (ICD-10-PCS; 2023-02-07)
PROC: 0DBK8ZX Excision of Ascending Colon, Via Natural or Artificial Opening Endoscopic, Diagnostic (ICD-10-PCS; principal; 2023-02-07 11:00)
DX: C18.9 Malignant neoplasm of colon, unspecified (principal); K56.1 Intussusception; Z68.42 Body mass index [BMI] 45.0-49.9, adult; D50.9 Iron deficiency anemia, unspecified; K76.0 Fatty (change of) liver, not elsewhere classified; M10.9 Gout, unspecified; D64.9 Anemia, unspecified; E66.01 Morbid (severe) obesity due to excess calories; Z82.49 Family history of ischemic heart disease and other diseases of the circulatory system; Z71.3 Dietary counseling and surveillance; Z84.89 Family history of other specified conditions; Z82.3 Family history of stroke; Z83.49 Family history of other endocrine, nutritional and metabolic diseases
CPT/HCPCS: 36415; 45384; 71045; 74176; 80048; 80053; 80061; 81001; 82306; 82378; 82607; 82746; 83036; 83540; 83550; 83615; 83690; 83735; 84443; 85025; 85045; 85610; 85730; 86803; 86850; 86900; 86901; 87340; 96360; 96361; C9113; G0378; J1756; J2250; J2405

== ENCOUNTER 2023-02-24 11:55 | Emergency (ER) | payer BC ==
[~2023-02-24] VITALS: Ht 177.8 cm; Wt 126.3 kg
[~2023-02-24 11:55] MED LIST changes: +ALLO100T PO
[2023-02-24] MEDS ORDERED: LACTATED RINGER'S 1,000 ML IV ONE (12:15)
[2023-02-24] MEDS ORDERED: HYDROcodone-ACET 5/325MG TAB PO ONE (12:15)
[2023-02-24] MEDS ORDERED: IOHEXOL 300 MG/ML 100ML BOTTLE IJ ONE (12:19)
[2023-02-24 13:01] LABS: Hemoglobin 10.3 g/dL (13.5-17.5); White Blood Cell 15.3 10^3/uL (4.4-10.8)
[2023-02-24 13:04] LABS: Hematocrit 33.8 % (41.0-53.0); Mean Corpuscular Hemoglobin 17.6 pg (28.0-32.0); Mean Corpuscular Hgb Conc. 30.4 g/dL (32.0-36.0); Mean Corpuscular Volume 57.8 fL (80.0-100.0); Red Blood Cells 5.86 10^6/uL (4.5-5.90); Red Cell Distribution Width 24.5 % (11.8-14.3)
[2023-02-24 13:05] LABS: Basophils % (manual) 0 (0.0-2.0); Blast Cells 0; Metamyelocytes % 0; Myelocytes % 0; Promyelocytes % 0; Reactive Lymphocytes 0
[2023-02-24 13:18] LABS: Albumin 3.3 g/dL (3.4-5.0); Calcium 9.2 mg/dL (8.5-10.1); Potassium 3.7 mmol/L (3.5-5.1)
[2023-02-24 13:20] LABS: Band Neutrophils % (manual) 6; Eosinophils % (manual) 2 (0-7); Lymphocytes % (manual) 20 (10.0-50.0); Monocytes % (manual) 5 (0-12)
[2023-02-24 13:22] LABS: BUN/Creatinine Ratio 9.3 (10.0-20.0); Bilirubin, Total 0.3 mg/dL (0.2-1.0); Total Protein 8.4 g/dL (6.4-8.2)
[2023-02-24] MEDS ORDERED: VANCOMYCIN 1GM/250ML 250 ML IV ONE (14:45)
[2023-02-24] MEDS ORDERED: BACDST PO ×2 (14:46)
[2023-02-24 15:00] VITALS: BP 138/86
== END 2023-02-24 15:19 | disposition home or self-care (01) ==
LOC: ER 11:55
DX: L02.91 Cutaneous abscess, unspecified (principal); Z79.899 Other long term (current) drug therapy; Z98.890 Other specified postprocedural states
CPT/HCPCS: 36415; 74177; 80053; 83605; 85007; 85027; 87040; 93005; 96360; 96361; 99285; Q9967

== ENCOUNTER 2023-03-01 09:29 | Emergency (ER) | payer BC ==
[~2023-03-01] VITALS: Ht 177.8 cm; Wt 123.0 kg
[2023-03-01 09:51] VITALS: BP 126/76
== END 2023-03-01 11:03 | disposition home or self-care (01) ==
LOC: EEVIPCON 09:29 → ER 09:29
DX: T81.30XA Disruption of wound, unspecified, initial encounter (principal); Z79.899 Other long term (current) drug therapy; Z98.890 Other specified postprocedural states; Y92.89 Other specified places as the place of occurrence of the external cause